=== PATIENT | male | born 1955 | race Caucasian/White ===

== ENCOUNTER 2017-07-16 23:13 | Observation (INO) | payer MEDICARE ==
[~2017-07-16] VITALS: Ht 177.8 cm; Wt 73.4 kg
[2017-07-17] MEDS ORDERED: LORazepam 1MG TABLET PO ONE
[2017-07-17 00:15] LABS: HEMATOCRIT 48.3 % (39.2-51.8); HEMOGLOBIN 16.6 g/dL (13.7-18.0); WHITE BLOOD COUNT 7.7 x10^3/uL (3.4-10)
[2017-07-17 00:29] LABS: ASPARTATE AMINO TRANSFERASE 34 U/L (15-37); BLOOD UREA NITROGEN 13 mg/dL (7-18)
[2017-07-17 00:33] LABS: ACETAMINOPHEN 6 mcg/mL (10-30)
[2017-07-17] MEDS ORDERED: OMEP20TA62 PO (00:34)
[2017-07-17] MEDS ORDERED: PARO20TA98 PO (00:34)
[2017-07-17] MEDS ORDERED: INSU100V12 SQ-INSULIN (00:34)
[2017-07-17 00:36] LABS: IS PT STATUS REG ER OR PRE ER? YES
[2017-07-17] MEDS ORDERED: LORazepam 1MG TABLET ONE (01:41)
[2017-07-17 01:47] LABS: DAU SCREEN DISCLAIMER
[2017-07-17] MEDS ORDERED: GLUCAGON 1 MG IM PRN (05:30)
[2017-07-17] MEDS ORDERED: DEXTROSE 50%, 50ML SYRINGE IVPush PRN (05:30)
[2017-07-17] MEDS ORDERED: DEXTROSE 4 GM TAB.CHEW PO PRN (05:30)
[2017-07-17] MEDS ORDERED: POLYETHYLENE GLYCOL 17 GM PACKET PO PRN (06:00)
[2017-07-17] MEDS ORDERED: ACETAMINOPHEN 325 MG TABLET PO PRN (06:00)
[2017-07-17] MEDS ORDERED: BISACODYL 10 MG SUPP PR PRN (06:00)
[2017-07-17] MEDS ORDERED: DOCUSATE 100 MG CAPSULE PO PRN (06:00)
[2017-07-17] MEDS ORDERED: HYDROcodone/APAP 5/325 TABLET PO PRN (06:00)
[2017-07-17] MEDS ORDERED: ONDANSETRON ODT 4 MG PO PRN (06:00)
[2017-07-17] MEDS ORDERED: ENOXAPARIN 40 MG/0.4 ML ONE (06:06)
[2017-07-17] MEDS: ENOXAPARIN 40 MG/0.4 ML SQ SCH (06:11)
[2017-07-17 06:23] VITALS: BP 121/81
[2017-07-17] MEDS: INSULIN ASPART 100 UNITS/ML, PEN SQ-INSULIN SCH ×4 (07:00→21:04)
[2017-07-17] MEDS ORDERED: SODIUM CHLORIDE FLUSH 10ML SYR IVF SCH (09:00)
[2017-07-17] MEDS: PAROXETINE 20 MG TABLET PO SCH (09:32)
[2017-07-17] MEDS: OMEPRAZOLE 20 MG CAPSULE.DR PO SCH (09:32)
[2017-07-17 19:39] VITALS: BP 102/66
[2017-07-17] MEDS ORDERED: INSULIN ASPART 70/30, VIAL SQ-INSULIN SCH (21:00)
[2017-07-17] MEDS: INSULIN ASPART 70/30 100U/ML, PEN SQ-INSULIN SCH (21:02)
[2017-07-18] MEDS: ENOXAPARIN 40 MG/0.4 ML SQ SCH (06:00)
[2017-07-18] MEDS: INSULIN ASPART 100 UNITS/ML, PEN SQ-INSULIN SCH ×4 (07:00→20:40)
[2017-07-18] MEDS: OMEPRAZOLE 20 MG CAPSULE.DR PO SCH (07:48)
[2017-07-18] MEDS: PAROXETINE 20 MG TABLET PO SCH (07:48)
[2017-07-18 08:00] VITALS: BP 127/89
[2017-07-18 19:43] VITALS: BP 119/80
[2017-07-18] MEDS: hydrOXyzine 50MG TABLET PO PRN (20:27)
[2017-07-18] MEDS: INSULIN ASPART 70/30 100U/ML, PEN SQ-INSULIN SCH (20:40)
[2017-07-19] MEDS ORDERED: HYDROcodone/APAP 5/325 TABLET PO PRN (02:00)
[2017-07-19] MEDS ORDERED: DOCUSATE 100 MG CAPSULE PO PRN (02:00)
[2017-07-19] MEDS ORDERED: BISACODYL 10 MG SUPP PR PRN (02:00)
[2017-07-19] MEDS ORDERED: DEXTROSE 50%, 50ML SYRINGE IVPush PRN (02:00)
[2017-07-19] MEDS ORDERED: GLUCAGON 1 MG IM PRN (02:00)
[2017-07-19] MEDS ORDERED: ONDANSETRON ODT 4 MG PO PRN (02:00)
[2017-07-19] MEDS ORDERED: POLYETHYLENE GLYCOL 17 GM PACKET PO PRN (02:00)
[2017-07-19] MEDS: ENOXAPARIN 40 MG/0.4 ML SQ SCH (06:00)
[2017-07-19] MEDS: INSULIN ASPART 100 UNITS/ML, PEN SQ-INSULIN SCH ×3 (07:00→16:59)
[2017-07-19 08:49] VITALS: BP 125/86
[2017-07-19] MEDS: PAROXETINE 20 MG TABLET PO SCH (09:28)
[2017-07-19] MEDS: OMEPRAZOLE 20 MG CAPSULE.DR PO SCH (09:28)
[2017-07-19] MEDS: ACETAMINOPHEN 325 MG TABLET PO PRN ×2 (09:36→16:38)
[2017-07-19] MEDS: hydrOXyzine 50MG TABLET PO PRN (09:40)
== END 2017-07-19 18:25 ==
LOC: ED 07-17 01:00 → EDIP 07-17 03:06 → 3E 07-17 06:18
PROVIDERS: ADMIT Internal Medicine; ATTEND Internal Medicine
DX: R45.851 Suicidal ideations (principal); F41.9 Anxiety disorder, unspecified; F32.9 Major depressive disorder, single episode, unspecified; E11.9 Type 2 diabetes mellitus without complications; I10 Essential (primary) hypertension; J44.9 Chronic obstructive pulmonary disease, unspecified; F15.90 Other stimulant use, unspecified, uncomplicated; F19.10 Other psychoactive substance abuse, uncomplicated; B19.20 Unspecified viral hepatitis C without hepatic coma; Z81.8 Family history of other mental and behavioral disorders
CPT/HCPCS: 36415; 71020; 80053; 80307; 80329; 82962; 83880; 84484; 85025; 87324; 93005; 96372; 99285; G0378; J1650; G0479; G0480; J1815

== ENCOUNTER 2017-07-29 23:39 | Emergency (ER) | payer MEDICARE ==
[~2017-07-29] VITALS: Ht 177.8 cm; Wt 74.8 kg
[~2017-07-29 23:39] MED LIST: INSU100V12 SQ-INSULIN; OMEP20TA62 PO; PARO20TA98 PO
[2017-07-29 23:41] VITALS: BP 133/84
[2017-07-30] MEDS ORDERED: LORazepam 1MG TABLET ONE (00:10)
[2017-07-30] MEDS ORDERED: LORazepam 1MG TABLET PO ONE (00:30)
== END 2017-07-30 00:22 | disposition home or self-care (01) ==
LOC: ED 23:59
DX: F41.1 Generalized anxiety disorder (principal); J44.9 Chronic obstructive pulmonary disease, unspecified; E11.9 Type 2 diabetes mellitus without complications
CPT/HCPCS: 99284

== ENCOUNTER 2017-09-14 21:58 | Observation (INO) | payer MEDICARE ==
[~2017-09-14] VITALS: Ht 177.8 cm; Wt 73.2 kg
[2017-09-14 23:11] LABS: HEMATOCRIT 38.7 % (39.2-51.8); HEMOGLOBIN 13.4 g/dL (13.7-18.0); WHITE BLOOD COUNT 5.7 x10^3/uL (3.4-10)
[2017-09-14 23:18] LABS: BLOOD UREA NITROGEN 8 mg/dL (7-18)
[2017-09-14 23:19] LABS: ASPARTATE AMINO TRANSFERASE 24 U/L (15-37)
[2017-09-14 23:26] LABS: DAU SCREEN DISCLAIMER
[2017-09-14 23:26] LABS: ACETAMINOPHEN < 2 mcg/mL (10-30)
[2017-09-15] MEDS ORDERED: ONDANSETRON ODT 4 MG PO PRN (04:00)
[2017-09-15] MEDS ORDERED: POTASSIUM CHLORIDE 20 MEQ TAB.ER.PRT PO ONE (04:30)
[2017-09-15 05:00] VITALS: BP 117/78
[2017-09-15] MEDS: ACETAMINOPHEN 325 MG TABLET PO PRN ×2 (05:01→14:02)
[2017-09-15 05:11] VITALS: BP 117/78
[2017-09-15] MEDS ORDERED: FLU VACC QS2017-18 (36MOS+) UP/PF 0.5 ML IM-VACC ONE (06:00)
[2017-09-15] MEDS ORDERED: PNEUMOCOCCAL 23 VACCINE IM-VACC ONE (06:00)
[2017-09-15 08:00] VITALS: BP 108/74
[2017-09-15] MEDS: INSULIN REGULAR 100 UNITS/ML, 3ML VIAL SQ-INSULIN SCH ×2 (08:44→12:03)
[2017-09-15] MEDS ORDERED: OMEPRAZOLE 20 MG CAPSULE.DR PO SCH (09:00)
[2017-09-15] MEDS ORDERED: PAROXETINE 20 MG TABLET PO SCH (09:00)
[2017-09-15] MEDS ORDERED: INSULIN HUMULIN 70/30, 3ML PEN SQ-INSULIN SCH (21:00)
[2017-09-16] MEDS ORDERED: PAROXETINE 20 MG TABLET PO SCH (09:00)
== END 2017-09-15 15:06 ==
LOC: ED 23:59 → EDIP 09-15 02:41 → 3E 09-15 04:46
PROVIDERS: ADMIT Hospitalist; ATTEND Hospitalist
DX: R45.851 Suicidal ideations (principal); E10.65 Type 1 diabetes mellitus with hyperglycemia; F15.20 Other stimulant dependence, uncomplicated; J44.9 Chronic obstructive pulmonary disease, unspecified; F10.10 Alcohol abuse, uncomplicated; F33.1 Major depressive disorder, recurrent, moderate; F41.1 Generalized anxiety disorder; Z72.820 Sleep deprivation; Z98.890 Other specified postprocedural states
CPT/HCPCS: 36415; 73130; 80053; 80307; 80329; 82962; 85025; 96372; 99285; G0378; J1815; Q0177; G0479; G0480

== ENCOUNTER 2017-09-23 19:08 | Emergency (ER) | payer MEDICARE ==
[~2017-09-23] VITALS: Ht 175.3 cm; Wt 81.0 kg
[2017-09-23 19:42] LABS: HEMATOCRIT 39.7 % (39.2-51.8); HEMOGLOBIN 13.7 g/dL (13.7-18.0); WHITE BLOOD COUNT 8.1 x10^3/uL (3.4-10)
[2017-09-23 19:52] LABS: ASPARTATE AMINO TRANSFERASE 27 U/L (15-37); BLOOD UREA NITROGEN 13 mg/dL (7-18)
[2017-09-23 20:01] LABS: ACETAMINOPHEN < 2 mcg/mL (10-30)
[2017-09-23 21:06] LABS: DAU SCREEN DISCLAIMER
[2017-09-24 02:03] VITALS: BP 138/74
== END 2017-09-24 02:07 | disposition home or self-care (01) ==
LOC: ED 19:43
DX: R45.851 Suicidal ideations (principal); F32.0 Major depressive disorder, single episode, mild; F15.10 Other stimulant abuse, uncomplicated; F10.120 Alcohol abuse with intoxication, uncomplicated; J44.9 Chronic obstructive pulmonary disease, unspecified; E11.9 Type 2 diabetes mellitus without complications; F41.1 Generalized anxiety disorder; Z79.4 Long term (current) use of insulin; Z79.899 Other long term (current) drug therapy; Z88.5 Allergy status to narcotic agent
CPT/HCPCS: 36415; 80053; 80307; 80329; 85025; 99284; G0479; G0480

== ENCOUNTER 2017-09-24 07:18 | Observation (INO) | payer MEDICARE ==
[~2017-09-24] VITALS: Ht 177.8 cm; Wt 75.0 kg
[2017-09-24 07:51] LABS: HEMATOCRIT 38.7 % (39.2-51.8); HEMOGLOBIN 13.4 g/dL (13.7-18.0); WHITE BLOOD COUNT 8.3 x10^3/uL (3.4-10)
[2017-09-24] MEDS ORDERED: DIPH,PERTUSS(ACELL),TET VAC/PF 0.5 ML IM-VACC ONE ×2 (08:00→09:15)
[2017-09-24] MEDS ORDERED: LIDOCAINE 2%, 20ML SQ ONE (08:00)
[2017-09-24 08:02] LABS: BLOOD UREA NITROGEN 14 mg/dL (7-18)
[2017-09-24 08:03] LABS: ACETAMINOPHEN < 2 mcg/mL (10-30)
[2017-09-24] MEDS ORDERED: LORazepam 1MG TABLET PO PRN (09:30)
[2017-09-24] MEDS ORDERED: POLYETHYLENE GLYCOL 17 GM PACKET PO PRN (09:30)
[2017-09-24] MEDS ORDERED: ONDANSETRON ODT 4 MG PO PRN (09:30)
[2017-09-24] MEDS ORDERED: DOCUSATE 100 MG CAPSULE PO PRN (09:30)
[2017-09-24] MEDS ORDERED: ACETAMINOPHEN 325 MG TABLET PO PRN (09:30)
[2017-09-24] MEDS ORDERED: BISACODYL 10 MG SUPP PR PRN (09:30)
[2017-09-24 09:56] LABS: DAU SCREEN DISCLAIMER
[2017-09-24 11:40] VITALS: BP 116/81
[2017-09-24] MEDS: INSULIN REGULAR 100 UNITS/ML, 3ML VIAL SQ-INSULIN SCH ×2 (12:46→16:25)
[2017-09-24] MEDS ORDERED: INSULIN ASPART 70/30, VIAL SQ-INSULIN SCH (21:00)
[2017-09-25] MEDS ORDERED: PAROXETINE 20 MG TABLET PO SCH (09:00)
== END 2017-09-24 17:04 ==
LOC: ED 07:25 → EDIP 09:00 → 3E 11:22
PROVIDERS: ADMIT Internal Medicine; ATTEND Internal Medicine
DX: T14.91XA Suicide attempt, initial encounter (principal); S61.511A Laceration without foreign body of right wrist, initial encounter; S61.512A Laceration without foreign body of left wrist, initial encounter; X78.0XXA Intentional self-harm by sharp glass, initial encounter; Y93.89 Activity, other specified; Y92.238 Other place in hospital as the place of occurrence of the external cause; Y99.8 Other external cause status; F32.9 Major depressive disorder, single episode, unspecified; D64.9 Anemia, unspecified; E11.65 Type 2 diabetes mellitus with hyperglycemia; J44.9 Chronic obstructive pulmonary disease, unspecified; Z23 Encounter for immunization
CPT/HCPCS: 36415; 73130; 80048; 80307; 80329; 82040; 82962; 85025; 90715; 96372; 99285; G0008; G0378; J1815; G0479; G0480

== ENCOUNTER 2017-10-07 09:25 | Inpatient (IN) | payer MEDICARE ==
[~2017-10-07] VITALS: Ht 177.8 cm; Wt 77.6 kg
[2017-10-07] MEDS ORDERED: ONDANSETRON 2MG/ML, 2ML IVPush ONE (10:00)
[2017-10-07] MEDS ORDERED: SODIUM CHLORIDE FLUSH 10ML SYR IVF ONE (10:00)
[2017-10-07] MEDS ORDERED: FAMOTIDINE 20 MG/2 ML IVP ONE (10:00)
[2017-10-07] MEDS ORDERED: SODIUM CHLORIDE 0.9% 1,000ML IVBOLUS ONE ×2 (10:00→12:30)
[2017-10-07] MEDS ORDERED: ONDANSETRON 2MG/ML, 2ML ONE (10:08)
[2017-10-07] MEDS ORDERED: FAMOTIDINE 20 MG/2 ML ONE (10:08)
[2017-10-07 10:13] LABS: HEMATOCRIT 43.5 % (39.2-51.8); HEMOGLOBIN 15.2 g/dL (13.7-18.0); WHITE BLOOD COUNT 13.7 x10^3/uL (3.4-10)
[2017-10-07 10:24] LABS: ASPARTATE AMINO TRANSFERASE 57 U/L (15-37); BLOOD UREA NITROGEN 43 mg/dL (7-18)
[2017-10-07 10:30] LABS: IS PT STATUS REG ER OR PRE ER? YES
[2017-10-07] MEDS ORDERED: SODIUM CHLORIDE 0.9% 1,000 ML IV ONE (12:39)
[2017-10-07] MEDS ORDERED: SODIUM CHLORIDE FLUSH 10ML SYR IVF PRN (13:00)
[2017-10-07] MEDS ORDERED: PROMETHAZINE 25 MG/ML, 1ML IM PRN (13:30)
[2017-10-07] MEDS ORDERED: DOCUSATE 100 MG CAPSULE PO PRN (13:30)
[2017-10-07] MEDS ORDERED: POLYETHYLENE GLYCOL 17 GM PACKET PO PRN (13:30)
[2017-10-07] MEDS ORDERED: BISACODYL 10 MG SUPP PR PRN (13:30)
[2017-10-07] MEDS ORDERED: DEXTROSE 4 GM TAB.CHEW PO PRN (14:00)
[2017-10-07] MEDS ORDERED: DEXTROSE 50%, 50ML SYRINGE IVPush PRN (14:00)
[2017-10-07] MEDS ORDERED: GLUCAGON 1 MG IM PRN (14:00)
[2017-10-07 14:45] VITALS: BP 151/90
[2017-10-07 15:02] VITALS: BP 151/90
[2017-10-07] MEDS ORDERED: CLON-364 PO (15:46)
[2017-10-07] MEDS ORDERED: MAGNESIUM SULFATE PMX 2GM/50ML 50 ML IV ONE (16:00)
[2017-10-07] MEDS: SODIUM CHLORIDE 0.9% 1,000 ML IV SCH (16:11)
[2017-10-07] MEDS: HEPARIN 5,000 UNITS/ML, 1ML SQ SCH (17:22)
[2017-10-07] MEDS: LORazepam 2 MG/ML, 1ML IVPush PRN ×2 (17:22→19:47)
[2017-10-07] MEDS: INSULIN ASPART 100 UNITS/ML, PEN SQ-INSULIN SCH ×2 (18:18→21:00)
[2017-10-07 19:26] LABS: RAPID INFLUENZA A Negative (Negative); RAPID INFLUENZA B Negative (Negative)
[2017-10-07] MEDS: SODIUM CHLORIDE FLUSH 10ML SYR IVF SCH (19:48)
[2017-10-07] MEDS: INSULIN ASPART 70/30, VIAL SQ-INSULIN SCH (21:00)
[2017-10-07] MEDS ORDERED: LORazepam 1MG TABLET ONE (23:42)
[2017-10-08] VITALS (12 sets, daily range): BP systolic 100–137; BP diastolic 54–81
[2017-10-08] MEDS: LORazepam 2 MG/ML, 1ML IV PRN ×4 (00:23→09:34)
[2017-10-08] MEDS ORDERED: LORazepam 0.5MG TABLET PO PRN (00:30)
[2017-10-08] MEDS ORDERED: LORazepam 1MG TABLET PO PRN ×4 (00:30)
[2017-10-08] MEDS ORDERED: LORazepam 2 MG/ML, 1ML IV PRN ×3 (00:30)
[2017-10-08] MEDS: HEPARIN 5,000 UNITS/ML, 1ML SQ SCH ×3 (01:22→18:02)
[2017-10-08] MEDS: HALOPERIDOL 5 MG/ML IM PRN ×2 (02:29→02:42)
[2017-10-08 06:13] LABS: BLOOD UREA NITROGEN 34 mg/dL (7-18)
[2017-10-08 06:18] LABS: HEMATOCRIT 32.4 % (39.2-51.8); HEMOGLOBIN 11.5 g/dL (13.7-18.0); WHITE BLOOD COUNT 10.8 x10^3/uL (3.4-10)
[2017-10-08 06:27] LABS: ASPARTATE AMINO TRANSFERASE 59 U/L (15-37)
[2017-10-08] MEDS ORDERED: MAGNESIUM SULFATE PMX 2GM/50ML 50 ML IV ONE (08:30)
[2017-10-08] MEDS: PAROXETINE 20 MG TABLET PO SCH (09:16)
[2017-10-08] MEDS: OMEPRAZOLE 20 MG CAPSULE.DR PO SCH (09:16)
[2017-10-08] MEDS: SODIUM CHLORIDE FLUSH 10ML SYR IVF SCH ×2 (09:17→20:45)
[2017-10-08] MEDS: INSULIN ASPART 100 UNITS/ML, PEN SQ-INSULIN SCH ×4 (09:17→20:59)
[2017-10-08] MEDS: SODIUM CHLORIDE 0.9% 1,000 ML IV SCH ×2 (09:18→18:01)
[2017-10-08] MEDS: ACETAMINOPHEN 325 MG TABLET PO PRN (16:55)
[2017-10-08] MEDS: INSULIN ASPART 70/30, VIAL SQ-INSULIN SCH (21:00)
[2017-10-09] MEDS: HEPARIN 5,000 UNITS/ML, 1ML SQ SCH ×3 (01:16→17:54)
[2017-10-09 02:00] VITALS: BP 107/71
[2017-10-09] MEDS: LORazepam 2 MG/ML, 1ML IV PRN (03:59)
[2017-10-09 04:51] LABS: HEMATOCRIT 30.8 % (39.2-51.8); HEMOGLOBIN 10.9 g/dL (13.7-18.0); WHITE BLOOD COUNT 8.2 x10^3/uL (3.4-10)
[2017-10-09 04:58] LABS: BLOOD UREA NITROGEN 20 mg/dL (7-18)
[2017-10-09] MEDS: ACETAMINOPHEN 325 MG TABLET PO PRN ×3 (05:56→20:56)
[2017-10-09] MEDS: INSULIN ASPART 100 UNITS/ML, PEN SQ-INSULIN SCH ×4 (07:00→20:55)
[2017-10-09] MEDS: OMEPRAZOLE 20 MG CAPSULE.DR PO SCH (08:25)
[2017-10-09] MEDS: PAROXETINE 20 MG TABLET PO SCH (08:25)
[2017-10-09] MEDS: SODIUM CHLORIDE FLUSH 10ML SYR IVF SCH ×2 (08:25→20:56)
[2017-10-09 08:30] VITALS: BP 117/80
[2017-10-09] MEDS ORDERED: POTASSIUM CHLORIDE 20 MEQ TAB.ER.PRT PO ONE (10:00)
[2017-10-09] MEDS ORDERED: MAGNESIUM SULFATE PMX 2GM/50ML 50 ML IV ONE (12:30)
[2017-10-09 14:37] VITALS: BP 105/70
[2017-10-09 18:48] VITALS: BP 112/65
[2017-10-09] MEDS: INSULIN ASPART 70/30, VIAL SQ-INSULIN SCH (20:55)
[2017-10-10] MEDS: HEPARIN 5,000 UNITS/ML, 1ML SQ SCH ×3 (00:37→17:32)
[2017-10-10 01:42] VITALS: BP 133/66
[2017-10-10] MEDS: INSULIN ASPART 100 UNITS/ML, PEN SQ-INSULIN SCH ×4 (07:00→23:49)
[2017-10-10 07:25] VITALS: BP 103/72
[2017-10-10] MEDS: SODIUM CHLORIDE FLUSH 10ML SYR IVF SCH ×2 (08:38→23:50)
[2017-10-10] MEDS: OMEPRAZOLE 20 MG CAPSULE.DR PO SCH (08:38)
[2017-10-10] MEDS: PAROXETINE 20 MG TABLET PO SCH (08:38)
[2017-10-10] MEDS: ACETAMINOPHEN 325 MG TABLET PO PRN ×2 (09:36→17:12)
[2017-10-10 14:25] VITALS: BP 107/65
[2017-10-10] MEDS ORDERED: MAGNESIUM SULFATE PMX 4GM/100M 100 ML IV ONE (16:00)
[2017-10-10 20:16] VITALS: BP 114/69
[2017-10-10] MEDS: INSULIN ASPART 70/30 100U/ML, PEN SQ-INSULIN SCH (23:50)
[2017-10-11] MEDS: HEPARIN 5,000 UNITS/ML, 1ML SQ SCH ×4 (01:30→17:06)
[2017-10-11 02:15] VITALS: BP 120/66
[2017-10-11] MEDS: INSULIN ASPART 100 UNITS/ML, PEN SQ-INSULIN SCH ×4 (07:00→21:06)
[2017-10-11 08:23] VITALS: BP 97/57
[2017-10-11] MEDS: PAROXETINE 20 MG TABLET PO SCH (09:14)
[2017-10-11] MEDS: SODIUM CHLORIDE FLUSH 10ML SYR IVF SCH ×2 (09:14→21:41)
[2017-10-11] MEDS: OMEPRAZOLE 20 MG CAPSULE.DR PO SCH (09:14)
[2017-10-11] MEDS: ACETAMINOPHEN 325 MG TABLET PO PRN ×2 (09:14→17:04)
[2017-10-11 14:50] VITALS: BP 118/72
[2017-10-11 19:26] VITALS: BP 133/60
[2017-10-11] MEDS: INSULIN ASPART 70/30 100U/ML, PEN SQ-INSULIN SCH (21:05)
[2017-10-12 00:49] VITALS: BP 111/70
[2017-10-12] MEDS: HEPARIN 5,000 UNITS/ML, 1ML SQ SCH ×2 (01:22→07:55)
[2017-10-12] MEDS: OMEPRAZOLE 20 MG CAPSULE.DR PO SCH (07:49)
[2017-10-12] MEDS: PAROXETINE 20 MG TABLET PO SCH (07:49)
[2017-10-12] MEDS: SODIUM CHLORIDE FLUSH 10ML SYR IVF SCH (07:55)
[2017-10-12] MEDS: INSULIN ASPART 100 UNITS/ML, PEN SQ-INSULIN SCH ×2 (07:55→11:34)
[2017-10-12 08:00] VITALS: BP 119/75
== END 2017-10-12 12:18 | disposition home or self-care (01) | DRG 682 ==
LOC: ED 10:16 → EDIP 12:39 → 4WST 14:27 → DCLOUNGE 10-12 12:12
PROVIDERS: ADMIT Family Medicine; ATTEND Family Medicine
DX: N17.0 Acute kidney failure with tubular necrosis (principal); G93.41 Metabolic encephalopathy; E10.65 Type 1 diabetes mellitus with hyperglycemia; D72.829 Elevated white blood cell count, unspecified; B18.2 Chronic viral hepatitis C; S61.511A Laceration without foreign body of right wrist, initial encounter; F10.239 Alcohol dependence with withdrawal, unspecified; E86.0 Dehydration; W06.XXXA Fall from bed, initial encounter; S61.512A Laceration without foreign body of left wrist, initial encounter; F32.9 Major depressive disorder, single episode, unspecified; Z66 Do not resuscitate; F15.90 Other stimulant use, unspecified, uncomplicated; F41.1 Generalized anxiety disorder; J44.9 Chronic obstructive pulmonary disease, unspecified; K29.20 Alcoholic gastritis without bleeding; R09.02 Hypoxemia; Y93.84 Activity, sleeping; Y92.89 Other specified places as the place of occurrence of the external cause; Y99.8 Other external cause status; Z79.4 Long term (current) use of insulin; Z80.0 Family history of malignant neoplasm of digestive organs; Z82.49 Family history of ischemic heart disease and other diseases of the circulatory system; Z90.89 Acquired absence of other organs; Z79.899 Other long term (current) drug therapy
CPT/HCPCS: 36415; 70450; 71010; 80048; 80053; 81001; 82010; 82746; 82800; 82962; 83690; 83735; 84100; 84443; 84484; 85025; 87040; 87086; 87400; 93005; 96361; 96374; 96375; J1644; J1815; J2405; J1630; J2060; J3475; J7030; S0028

== ENCOUNTER 2019-10-27 17:11 | Emergency (ER) | payer MEDICARE, MEDICAID ==
[~2019-10-27] VITALS: Ht 177.8 cm; Wt 81.0 kg
[~2019-10-27 17:11] MED LIST changes: +CLON0.5T11 PO
[2019-10-27 17:33] VITALS: BP 150/90
[2019-10-27] MEDS ORDERED: LORazepam 1MG TABLET ONE (18:07)
--- NOTE | 2019-10-27 18:19 | NUR ---
PATIENT MEDICATED PER EMAR. RESTING ON GURNEY. CALL LIGHT IN REACH. DENIES FURTHER NEEDS AT THIS TIME.
[2019-10-27] MEDS ORDERED: LORazepam 1MG TABLET PO ONE (18:30)
[2019-10-27] MEDS ORDERED: PAROXETINE 20 MG TABLET PO ONE (18:30)
--- NOTE | 2019-10-27 19:22 | NUR ---
TASK RN: DC EDUCATION PROVIDED, PT DEMONSTRATES UNDERSTANDING. PT AMBULATED STEADILY TO DC WITH RN USING OWN CANE.
== END 2019-10-27 19:24 | disposition home or self-care (01) ==
LOC: ED 19:11
DX: F41.1 Generalized anxiety disorder (principal); F33.9 Major depressive disorder, recurrent, unspecified; I10 Essential (primary) hypertension; E11.9 Type 2 diabetes mellitus without complications; F15.90 Other stimulant use, unspecified, uncomplicated; Z72.89 Other problems related to lifestyle
CPT/HCPCS: 99283